=== PATIENT | female | born 1955 | race Caucasian/White ===

== ENCOUNTER → 2017-07-19 10:29 | Outpatient (CLI) | payer BC, SELFPAY ==
--- NOTE | 2017-07-19 10:31 | US_ITS ---
STUDY: ULTRASOUND BREAST - LEFT REASON FOR EXAM: Female, 61 years old. Abnormal screening mammogram. TECHNIQUE: Axial and longitudinal images of the LEFT breast were performed with a high resolution ultrasound transducer. COMPARISON: Comparison is made with prior study dated July 14, 2017. FINDINGS: LEFT Breast: There is a 6 mm x 6 mm x 3 mm mildly echogenic nodule at the 12:00 position the breast at 3 cm from the nipple. This most likely recurrence a lipoma. There is a 2 mm x 7 mm x 3 mm cyst at the 3:00 position approximately 3 cm from the nipple. There is also evidence of a 6 mm x 8 mm x 2 mm lymph node at the 3:00 position in the breast at 3 cm from the nipple US/Breast Limited Unilateral IMPRESSION: Small cyst at the 3:00 additional breast 3 cm from nipple as well as a small lymph node. ASSESSMENT CATEGORY: BIRADS Category 2: Benign. A letter regarding these results will be sent to the patient by the facility within 30 days. Electronically Signed: Neo Staples MD at 14:26 EDT Tel [phone], Service support ,
== END | disposition home or self-care (01) ==
PROVIDERS: Family Provider Family Medicine; PCP Family Medicine; Visit Provider Family Medicine
DX: N60.02 Solitary cyst of left breast (principal)
CPT/HCPCS: 76642

== ENCOUNTER → 2019-05-01 15:10 | Outpatient (CLI) | payer MEDICARE, SELFPAY ==
--- NOTE | 2019-05-01 15:18 | RAD_ITS ---
STUDY: X-RAY - PELVIS AND LEFT HIP REASON FOR EXAM: Female, 63 years old. Pain TECHNIQUE: 3 views of the pelvis and hip. COMPARISON: None. FINDINGS: There is a non-specific bowel gas pattern. Normal visualized soft tissue structures. Normal bilateral iliac wings, sacroiliac joints and visualized sacrum. Normal bilateral superior and inferior pubic rami. Normal pubic symphysis. Normal bilateral ischial tuberosities. Normal visualized femoral head. Sclerosis and probable degenerative cystic changes at the acetabulum. Narrowed hip joint. RAD/HIP, UNI W/ Pelvis 2-3 Views IMPRESSION: Degenerative changes with narrowing of the left hip. Electronically Signed: Aniceto Felder DO at 23:54 EDT Tel [phone], Service support ,
== END ==
PROVIDERS: Family Provider Family Medicine; PCP Family Medicine; Referring Provider Family Medicine; Visit Provider Family Medicine
DX: M25.552 Pain in left hip (principal)
CPT/HCPCS: 73502

== ENCOUNTER 2019-08-09 06:35 | Inpatient (IN) | payer MEDICARE, OTHER, SELFPAY ==
[2019-07-26 13:01] VITALS: BP 152/82; PULSE 69; RESP 17; TEMP 36.4; O2SAT 99; BMI 30.5
--- NOTE | 2019-07-26 13:25 | SDCEKG_ITS ---
Test Reason : Blood Pressure : / mmHG Vent. Rate : 065 BPM Atrial Rate : 065 BPM P-R Int : 158 ms QRS Dur : 074 ms QT Int : 394 ms P-R-T Axes : 067 039 062 degrees QTc Int : 409 ms Normal sinus rhythm Possible Left atrial enlargement Borderline ECG Confirmed by HALEY SHEPHERD, CHRIS ([id number]), offline editor JUDITH AYON ([id number]) on 07/28/2019 1:13:51 PM Referred By: Pete Roger Confirmed By:MICHELLE DE LEON MD
[2019-07-26 14:06] LABS: Absolute Lymphocyte Count 2.11 X10^3/uL (0.83-4.51); Absolute Neutrophil Count 3.6 X10^3/uL (2.0-7.7); Basophil# 0.03 X10^3/uL; Basophil% 0.5 % (0-1); Eosinophil# 0.11 X10^3/uL; Eosinophils% 1.7 % (0-5); Hematocrit 41.7 % (37-47); Hemoglobin 13.5 g/dL (12.0-15.0); Lymphocyte # 2.11 X10^3/ul (4.0); Lymphocyte % 33.2 % (19-41); Mean Corp Hgb Conc 32.4 g/dL (32-36); Mean Corpuscular Hgb 29.5 pg (27.0-32.0); Mean Platelet Vol. 9.9 fl (6.2-12.0); Monocyte% 7.9 % (0-10); NRBC Flagged by Analyzer 0 % (0-5); Neutrophil # 3.59 X10^3/uL (2.7-7.7); Neutrophil % 56.5 % (47-70); Platelet Count 243 K/mm3 (150-450); RBC Distribution Width CV 13.9 % (11.6-14.6); Red Blood Count 4.58 M/mm3 (4.2-5.4); White Blood Count 6.4 K/mm3 (4.4-11.0)
[2019-07-26 14:10] LABS: Partial Thromboplast Time 27.1 Seconds (24.1-36.2)
[2019-07-26 14:32] LABS: AST(SGOT) 26 U/L (15-37); Alanine Aminotransfer ALT/SGPT 40 U/L (13-56); Alkaline Phosphatase 76 U/L (45-117); Anion Gap 4 (5-15); BUN 10 mg/dL (7-18); BUN/Creat Ratio 13.5 RATIO (10-20); Calcium,Total 9.4 mg/dL (8.5-10.1); Chloride 108 mmol/L (98-107); Creatinine, Serum 0.74 mg/dL (0.55-1.02); EST Glomerular Filtration Rate 83 mL/min (>60); Est Glom Filt Rate - Afr Amer 101 mL/min (>60); Estimated Creatinine Clearance 70.95 ml/min; Globulin 3.9 g/dL (2.2-4.2); Glucose 95 mg/dL (74-106); Potassium 3.6 mmol/L (3.5-5.1); Protein, Total 7.9 g/dL (6.4-8.2); Sodium Level 140 mmol/L (136-145)
--- NOTE | 2019-07-27 10:29 | PCM.HP.BLA ---
History and Physical Patient Name: Eliana Calvin : 1955 From: MALINA MAE PA-C DATE OF SURGERY: 08/09/2019 SCHEDULED PROCEDURE: left total hip arthroplasty HISTORY OF PRESENT ILLNESS: Preoperative history and physical exam was performed on July 26, 2019. This is a 63-year-old female who has been having ongoing pain in her left hip for the past 1 year. Her pain is been intermittent, aching. She has increased pain going up and down stairs, driving, sitting, and walking. Patient states she has difficult time with activities of daily living including getting dressed due to the pain. Patient does have a history of a previous left hip fracture approximately 18 years ago that did require cephalo-medullary nail in which it was removed 1 year later. Patient states her pain can reach as high as a 9/10 with activities. The past several months the pain has been progressively getting worse. She does have start up pain. She does complain of pain in the left groin. Patient has tried oral medications consisting of ibuprofen and Excedrin with minimal relief. She has tried home exercises on her own with minimal relief. Patient denies recent fevers, chills, recent infections. Patient has medical history pertinent for hypertension. She also states she has a family history for aneurysms. She did have an MRA of the brain which revealed carotid stenosis. She is following with the specialist at [facility]. She denies any chest pain, shortness of breath, headaches, fevers, recent infections. Obtaining surgical clearance from patient's primary care physician Dr. Wright. After failing conservative measures and discussing treatment options with Dr. Pete Roger, the patient would like proceed with a left total hip arthroplasty. REVIEW OF SYSTEMS: ROS: Const: Reports change in appetite and weight change, but denies fever. CV: Denies chest pain, heart murmur and irregular heartbeat. Resp: Denies cough, pneumonia, shortness of breath, tuberculosis and wheezing. GI: Reports constipation, but denies diarrhea, heartburn, nausea, rectal itching, bloody stools and vomiting. : Denies incontinence. Musculo: Reports gait disturbance and trouble walking, but denies leg swelling, pain and weakness. Skin: Denies Raynaud's, history of shingles and tattoo. Neuro: Reports dizziness but denies ambulatory dysfunction, numbness/tingling and tremor. Psych: Reports stress, but denies anxiety and insomnia. Lc/Lymph: Reports past transfusion, but denies anemia and bleeding/bruising tendency. Reviewed, no changes. PAST MEDICAL HISTORY: Advance Care Plan: No Advance Directives Effective Date: 05/29/2019 PMH: Medical Problems: Arthritis, Hypercholesterolemia, High Blood Pressure Accidents: Fracture - (2000) LT HIP Surgical Hx: Eye Lid - (2017) LT Hip ORIF - (2000) LT Hip Hardware Removed - (2001) Anesthesia Complications: None Assistive Devices: Contacts, Glasses Reviewed and updated. SOCIAL HISTORY: SH: Marital: .Occupation: Realtor.Work Status: Currently Working.Hand Dominance: Right-handed. Personal Habits: Cigarette Use: Former.Smokeless Tobacco: Never Used Smokeless Tobacco.E-Cigarette Use: Never used.Alcohol: Occasionally.Drug Use: Denies Use.Enjoy Exercising: Exercises 1-3 X/Week. Reviewed, no changes. VITALS: Ht: 66 Wt: 198lb Wt k.813 BMI: 32.0 BP: 140/90 Pulse: 68 Resp: 16 T: 97.1 T: 36.2C ALLERGIES: Penicillin MEDICATIONS: Hydrochlorothiazide 25 mg 1 by mouth every day, Rosuvastatin Calcium 10 mg 1po qday, Aleve 220 mg prn, Excedrin Extra Strength 250-250-65 mg prn PRE-OP EXAM: General appearance:NORMAL Other: Eyes: Conjunctivae and lids: NORMAL Pupils: ERR Ears, Nose, Mouth, and Throat: NORMAL Other: Inspection of lips, teeth and gums: NORMAL Other: Neck: Examination of neck: no masses noted. Respiratory: Assessment of respiratory effort: NORMAL Other: Auscultation of lungs: clear to auscultation no wheezes, rhonchi or rales. Cardiovascular: Auscultation of heart: regular rate and rhythm, no murmurs, gallops or rubs. Gastrointestinal: Exam of abdomen: soft, nontender, nondistended bowel sounds present. PHYSICAL EXAMINATION: Patient walks with an antalgic gait. Patient has tenderness to palpation along the left lateral hip. Range of motion left hip: Flexion 85, internal rotation 20, external rotation 25. Pain is reproduced with flexion and internal rotation. Previous scars are without erythema or signs of infection. Sensation intact to light touch. IMAGING STUDIES: X-rays were obtained at [facility] including 2 views of the left hip AP pelvis and AP left hip reveals no acute finding for fracture or dislocation. There is evidence of previous cephalo-medullary nail with well-healed intertrochanteric hip fracture. Patient has had progressive osteoarthritis of the left hip with joint space narrowing, osteophyte formation, with subchondral cyst formation on the acetabulum. Left hip appears shorter in comparison to the lesser trochanter. IMPRESSION: 1. Severe left hip osteoarthritis 2. Hypertension 3. Hypercholesterolemia PLAN: Dr. Pete Roger did discuss and review with the patient all treatment options including surgical versus nonsurgical options. Patient does wish to proceed with the above-stated procedure. Potential risks, benefits, and complications of the procedure were discussed in detail including but not limited to , infection, nerve and blood vessel damage, persistent pain, numbness, tingling, paresthesias, blood clot, pulmonary embolism, and requirement for possible further surgery. The patient expressed full understanding and has no further questions for the doctor. Patient does agree to proceed with the above-stated procedure and has signed the surgery consent form. This dictation was created using voice recognition software. Phonetic and/or grammatical errors may exist. ___ I have re-examined the patient. There are no clinical changes since date of exam. ___ See progress notes for changes. ___ Dictated on admission Date: Time: Signature:
[2019-08-09] VITALS (14 sets, daily range): BP systolic 110–151; BP diastolic 57–96; PULSE 70–95; RESP 12–18; TEMP 36.1–36.8; O2SAT 96–100; BMI 30.5
--- NOTE | 2019-08-09 07:18 | RAD_ITS ---
STUDY: X-RAY - PELVIS AND LEFT HIP REASON FOR EXAM: Female, 63 years old. Left total hip replacement. TECHNIQUE: 3 views of the pelvis and hip. COMPARISON: None. FINDINGS: The patient is status post left hip replacement. There is good alignment. Postoperative soft tissue changes. RAD/Hip Min 2 Views (Portable) IMPRESSION: Status post left hip replacement. There is good alignment. Postoperative soft tissue changes. Electronically Signed: Neo Staples, at 13:55 EST , Service support ,
[2019-08-09 07:25] LABS: Bedside Glucose 82 mg/dL (70-110)
[2019-08-09] MEDS: Lactated Ringers 1,000 ML 125 ML IV ×3 (07:37→21:57)
[2019-08-09] MEDS: Magnesium Sulfate 4gm/100mL 4 GM/100 ML IV.SOLN. IV (07:38)
[2019-08-09] MEDS: Gabapentin 600 MG Tablet PO (07:39)
[2019-08-09] MEDS: Celecoxib 200 MG Capsule 400 MG PO (07:39)
[2019-08-09] MEDS: Acetaminophen 500 MG Tablet 1000 MG PO ×3 (07:39→21:56)
[2019-08-09] MEDS: Scopolamine 1mg/72hr Patch 1 PATCH TD (07:41)
[2019-08-09] MEDS: Lactated Ringers 1,000 ML 999 ML IV (08:22)
--- NOTE | 2019-08-09 08:45 | HIP_PTH ---
PATIENT: DASH LICEA LOC: MS3 U#:[id number] AGE/SX: 63/F [place]OM[place] [facility] [place]09/[address]: Dr. Pete Roger MD : 1955 BED: 1 DIS: 08/10/2019 SPEC #: [id number] RECD: 08/09/19 16:05 STATUS: BHARTI BRITTANY #: [id number] SOBEIDA: 08/09/19 08:[address]: Pete Roger DEPT: SURGICAL PATHOLOGY RECD BY: Dennis Toro ENTERED: 08/10/19 07:58 SP TYPE: TOTAL HIP OTHR DR: Dr. Uli Wright MD Tissues: Hip, NOS Procedures: Decalcification bone/plaque Surgery Specimen Level IV HEADER OPERATION: ERAS, total hip anterior approach PRE-OP DIAGNOSIS: Severe left hp osteoarthritis TISSUE SUBMITTED: Left hip bone MICROSCOPIC DIAGNOSIS Bone and soft tissue of left hip, total hip resection: Consistent with degenerative joint disease. Mild synovial hyperplasia. AM:leticia 08/16/19 MICROSCOPIC DESCRIPTION Slides are reviewed. GROSS DESCRIPTION Received is one container labeled with the patient's name and designated left hip. The specimen consists of a roberts femoral head measuring 4.5 x 4.5 x 4 cm. The articular surface displays prominent osteophyte formation and bone erosion. Also present in the specimen container is a detached piece of bone consistent with portion of femoral neck measuring 3.5 x 2.5 x 1 cm. The soft tissue measures in aggregate 8 x 8 x 2.5 cm. Avionics Integration Engineer sections are submitted in two cassettes as follows: 1 - soft tissue, 2 - bone after decalcification. / SJ:leticia 08/10/19 TC:5 CPT: 50559, 85542
[2019-08-09] MEDS: Cefazolin 2 GM in 0.9% Normal Saline 100 ML IV (09:15)
--- NOTE | 2019-08-09 09:55 | RAD_ITS ---
STUDY: X-RAY - PELVIS AND LEFT HIP REASON FOR EXAM: Female, 63 years old. Total anterior hip replacement. TECHNIQUE: 6 intraoperative views of the pelvis and hip. COMPARISON: Left hip, May 01, 2019. FINDINGS: The findings demonstrate placement of a left total knee arthroplasty. Please refer to the operative report for further details. RAD/Hip 1 view with Pelvis IMPRESSION: Left hip replacement in the OR. Electronically Signed: Kishor Mai DO at 17:46 EST Tel [phone], Service support ,
--- NOTE | 2019-08-09 10:45 | OP.PCM_ITS ---
Report of Operation Date of Procedure: 08/09/19 Pre-Operative Diagnosis: Left hip posttraumatic osteoarthritis Post-Operative Diagnosis: Left hip posttraumatic osteoarthritis Surgery/Procedure Performed:: Conversion of previous hip surgery to total hip replacement Description of Surgical Findings:: Stable hip with equal leg lengths. Patient had fracture callus near the proximal diaphysis where we had to ream in order to get the implants and properly. c consultant: Rosibel Valdez Type of Anesthesia:: Spinal Anesthesiologist: Minh Weiner Special Medications: 2 g Ancef, 1 g TXA at incision, 1 g TXA closure, 10 mg Decadron, joint cocktail (5 mg Duramorph, 30 mL of 0.5% Ropivicaine, 1000 units of epinephrine, 30 mg of Toradol) Specimen's removed: Femoral head Estimated Blood Loss (mL): 200 Fluids Replaced: 1000 mL crystalloid Description of Procedure: Components used: 1. Accolade 2 Migue femoral stem size 4 132? 2. Eureka trident 2 acetabular shell size 52 mm 3. Eureka X3 polyethylene E 4. Migue Biolox delta 36mm, -5mm femoral head Brief history operative indications: 63 yo f who failed conservative measures for their hip osteoarthritis which was resulted previous left hip fracture which was fixed surgically. Implants were eventually removed.. X-rays were consistent with osteoarthritis including joint space narrowing, osteophyte formation and subchondral cysts. Patient also had fracture callus and healing in the subtrochanteric area with good alignment of the proximal femur. Total hip replacement was discussed with the patient with risks and benefits including but not limited to blood loss, DVTs, PEs, brock rovascular damage, dislocation, general risks of anesthesia including loss of life. Patient demonstrated an understanding medical clearance is obtained the patient was consented for surgery. Procedure: On the date of procedure the patient's L hip was marked in the preoperative area. Patient was then taken back to the operating room where anesthesia assumed control of the C-spine and airway and administered anesthetic. Patient was transferred to the operating table and placed in the supine position. The hips were placed at the break of the bed and a sacral bump was placed. The L lower extremity was then prepped out in a sterile fashion using chlorhexidine while the surgeon scrubbed. The PA was vital in the positioning of the patient. Upon reentering the room the L lower extremity was draped in the standard orthopedic fashion and the incision was marked. A timeout was called and everyone agreed upon the side, the site, the procedure be performed, antibody given, and patient's identity. At this time incision was made through skin, subcutaneous tissue, and fat down to fascia. The fascia was then incised and the TFL was retracted laterally. A retractor was placed on the lateral border of the femoral neck. Attention was directed to the inferior portion of the approach and all crossing vessels were identified and appropriately coagulated. A retractor was then placed on the medial portion of the femoral neck. The anterior capsule was then cleared of all soft tissue and then H shaped capsulotomy was made. The retractors were then placed inside the capsule. The femoral neck was identified and a cleanup cut was made. At this time a power corkscrew was used to remove the femoral head. Attention was then turned toward the acetabulum where the soft tissues were ap propriately retracted and the acetabulum was sequentially reamed to 52 mm. A 52 mm cup was then selected and impacted into place. Acetabular liner was impacted into place and locking mechanism was verified. The position of the acetabular cup was then verified under live fluoroscopy. Attention was then turned to the femur. Soft tissue releases on the medial and lateral femoral neck were appropriately done, the leg was externally rotated and lateralized. A Stevens retractor was placed medially and proximally to the greater trochanter this allowed appropriate visualization and exposure of the femoral canal. Rongeour was then used to remove excess lateral bone. A canal finder and entry broach were used to open the proximal canal. Initially the fracture callus in the sub-soheila area made it difficult to get the first broach pass. Live x-ray was used in the AP and lateral planes in order to carefully pass the first broach. After the first broach was passed live x-ray was used to verify that we had not perforated the cortex. At this time a ball-tipped guidewire was placed down the canal and flexible reamers were used to open up the canal for the planned size for stem. We also new from the initial x-rays that we needed to continue to lateralize her implant. Once we verified we were down the femoral canal we subsequently broached up to a size 4 femur. The appropriate neck was placed in the previously selected head was trialed with a - 5 mm neck. Traction was pulled and the hip was reduced with internal rotation. Once it was appropriately reduced and stability was checked. There was minimal shuck, equal leg lengths and appropriate stability with hyperextension and external rotation as well as with 90? flexion and internal rotation. Fluoroscopy was then also used to verify the position of the components and leg lengths using the contralateral side for comparison. We examined the hip in the AP and lateral planes as well as the proximal femur to verify no fractures occurred during surgery. No fractures were detected. The trial components were then dislocated the proximal femur was again exposed and the components were removed from the wound. The final components were verified and opened. The wound was copiously irrigated out with normal saline. The acetabulum was checked for any residual debris. The final components were placed and impacted. Traction and internal rotation were again used to reduce the hip. After adequate reduction the hip remained stable with appropriate leg lengths. The final components were once again checked with live fluoroscopy and were found to be satisfactory. The wound was then copiously irrigated with normal saline once more, and hemostasis was obtained. Closure was then done using #1 Vicryl runner to close the fascia. A 2-0 vicryl interuppted sutures were used to close the subcutaneous skin. A 3-0 Monocryl and Steri-Strips were used for final skin closure. A Silverlon dressing was placed. Patient was awakened by anesthesia and transferred to the [facility]. Patient was then transferred to the PACU for recovery. Postoperative plan: Patient will get 24 hours postop antibiotics. Patient will get in-house physical therapy and will be weight-bear as tolerated. Patient will follow up in office in 2 weeks for a wound check and x-rays. Grafts/Implants Used: Migue - Complications No intraoperative complications - Admit VTE Documentation VTE Present on Admission: No VTE Mechan Device Prophylaxis: SCD's, Thigh High GELY Hose VTE Pharm Prophylaxis ordered?: Yes
[2019-08-09] MEDS: dexAMETHasone 10 MG/ML Vial IV (12:17)
[2019-08-09] MEDS: hydroCHLOROthiazide 12.5mg 12.5 MG PO (13:58)
[2019-08-09] MEDS: Famotidine 20 MG Tablet PO (13:58)
[2019-08-09] MEDS: Ensure Surgery 237 ML LIQUID PO (14:04)
[2019-08-09] MEDS: Ondansetron 4 MG/2 ML Vial IV (15:32)
[2019-08-09] MEDS: 0.9% Saline Lock 10 ML Syringe IV ×2 (15:33→16:50)
[2019-08-09] MEDS: Aspirin 81 MG TAB.CHEW PO (16:49)
[2019-08-09] MEDS: Cefazolin 1 GM/50 ML BAG IV (16:49)
[2019-08-09] MEDS: Ketorolac 15 MG/ML Vial IV (16:50)
[2019-08-09] MEDS: traMADol 50 MG Tablet PO (18:04)
[2019-08-09] MEDS: Morphine 2 MG/ML Syringe IV (19:48)
[2019-08-09] MEDS: Atorvastatin Calcium 20 MG Tablet PO (21:56)
[2019-08-09] MEDS: Senna/Docusate Sodium 1 Tablet 2 TABLET PO (21:56)
[2019-08-10] MEDS: Cefazolin 1 GM/50 ML BAG IV (00:44)
[2019-08-10 04:27] VITALS: BP 127/57; PULSE 72; RESP 16; TEMP 36.5; O2SAT 93
[2019-08-10] MEDS: Ondansetron 4 MG/2 ML Vial IV (05:20)
[2019-08-10] MEDS: Acetaminophen 500 MG Tablet 1000 MG PO ×2 (05:48→14:02)
[2019-08-10 06:10] LABS: Hematocrit 32.4 % (37-47); Hemoglobin 10.8 g/dL (12.0-15.0); Mean Corp Hgb Conc 33.3 g/dL (32-36); Mean Platelet Vol. 9.4 fl (6.2-12.0); Platelet Count 215 K/mm3 (150-450); RBC Distribution Width CV 13.2 % (11.6-14.6); RBC Distribution Width SD 43.8 fl (35.1-43.9); White Blood Count 14.5 K/mm3 (4.4-11.0)
[2019-08-10 06:24] LABS: Anion Gap 6 (5-15); BUN 10 mg/dL (7-18); BUN/Creat Ratio 17.1 RATIO (10-20); Calcium,Total 8.4 mg/dL (8.5-10.1); Chloride 97 mmol/L (98-107); Creatinine, Serum 0.58 mg/dL (0.55-1.02); EST Glomerular Filtration Rate 110 mL/min (>60); Est Glom Filt Rate - Afr Amer 133 mL/min (>60); Estimated Creatinine Clearance 90.53 ml/min; Glucose 121 mg/dL (74-106); Potassium 3.5 mmol/L (3.5-5.1); Sodium Level 132 mmol/L (136-145)
--- NOTE | 2019-08-10 06:39 | NURSING ---
up to bathroom, unable to void, bladder scanned for 550, straight cath for 600cc clear yellow urine. Pt tolerated well.
[2019-08-10 07:59] VITALS: BP 110/56; PULSE 75; RESP 18; TEMP 36.4; O2SAT 93
[2019-08-10] MEDS: Senna/Docusate Sodium 1 Tablet 2 TABLET PO (08:09)
[2019-08-10] MEDS: Multivitamins,Ther W-Minerals Tablet 1 TABLET PO (08:09)
[2019-08-10] MEDS: Aspirin 81 MG TAB.CHEW PO (08:09)
[2019-08-10] MEDS: Famotidine 20 MG Tablet PO (08:09)
[2019-08-10] MEDS: Ensure Surgery 237 ML LIQUID PO ×2 (08:09→11:36)
[2019-08-10] MEDS: hydroCHLOROthiazide 12.5mg 12.5 MG PO (08:09)
--- NOTE | 2019-08-10 09:12 | PCM.PN.ORT ---
Subjective: The patient was sitting in bed upon examination. Patient denies any chest pain, shortness of breath, nausea or vomiting, or calf pain. Pain is controlled on medications. Patient did have overnight some nausea and dizziness/lightheadedness when trying to get up. He did require Zofran. She also required to be straight cathed but was also able to urinate on her own. She does report having some experience with getting to the bathroom fast enough in the past. She has not seen any urologist or primary care physician for this problem. Nursing states she was able to urinate on her own but did require straight cath. Objective: Vital signs stable and afebrile. Patient is able to plantarflex and dorsiflex actively. Sensation is intact to light touch to saphenous, sural, superficial and deep peroneal, and tibial distribution. Dressing is mild drainage over the lateral portion of the dressing but otherwise clean dry and intact Negative Homans bilaterally, negative signs and symptoms of DVT. - Physical Exam Vitals/I&O's: Vital Signs Temp Pulse Resp BP Pulse Ox 97.6 F L 75 18 110/56 L 93 08/10/19 07:59 08/10/19 07:59 08/10/19 07:59 08/10/19 07:59 08/10/19 07:59 Oxygen Flow Rate (L/min) 6 Oxygen Delivery Method Room Air Weight: 85.91 kg Body Mass Index (BMI) 30.5 Intake and Output for Last 24 Hours 08/08/19 08/09/19 08/10/19 23:59 23:59 23:59 Intake Total 2619.58 / 3419.58 2929.17 / 2929.17 Output Total 1130 / 1130 600 / 600 Balance 1489.58 / 2289.58 2329.17 / 2329.17 General: Alert, Oriented x3, Cooperative, No apparent distress Laboratory Results 08/10/19 05:55: WBC 14.5 H, RBC 3.60 L, Hgb 10.8 L, Hct 32.4 L, MCV 90.0, MCH 30.0, MCHC 33.3, RDW Std Deviation 43.8, RDW Coeff of Tiffany 13.2, Plt Count 215, MPV 9.4 08/10/19 05:55: Sodium 132 L, Potassium 3.5, Chloride 97 L, Carbon Dioxide 29.0, Anion Gap 6, BUN 10, Creatinine 0.58, Estim Creat Clear Calc 90.53, Est GFR (MDRD) Af Amer 133, Est GFR (MDRD) Non-Af 110, BUN/Creatinine Ratio 17.1, Glucose 121 H, Calcium 8.4 L Current Medications Acetaminophen (Tylenol) 1,000 mg PO Q8 [facility] Last Admin: 08/10/19 05:48 Dose: 1,000 mg Documented by: Aspirin (Aspirin, Baby) 81 mg PO BIDCM [facility] Last Admin: 08/10/19 08:09 Dose: 81 mg Documented by: Atorvastatin Calcium (Lipitor) 20 mg PO QHS [facility] Last Admin: 08/09/19 21:56 Dose: 20 mg Documented by: Enteral Nutritional Formula (Ensure Surgery) 237 ml PO TIDCM [facility] Last Admin: 08/10/19 08:09 Dose: 237 ml Documented by: Famotidine (Pepcid) 20 mg PO DAILY [facility] Last Admin: 08/10/19 08:09 Dose: 20 mg Documented by: Hydrochlorothiazide () 12.5 mg PO DAILY [facility] Last Admin: 08/10/19 08:09 Dose: 12.5 mg Documented by: Sodium Chloride () 250 mls @ 15 mls/hr IV .[id number] PRN PRN Reason: Saline Flush Ketorolac Tromethamine (Toradol) 15 mg IV Q6H PRN PRN PRN Reason: Pain Score 1-5/10 Stop: 08/11/19 07:18 Last Admin: 08/09/19 16:50 Dose: 15 mg Documented by: Meloxicam (Mobic) 7.5 mg PO BID [facility] Morphine Sulfate () 2 - 4 mg IV Q2H PRN PRN PRN Reason: Pain Score 4-10/10 Last Admin: 08/09/19 19:48 Dose: 2 mg Documented by: Morphine Sulfate () 2 - 4 mg IV Q2H PRN PRN PRN Reason: Pain Score 4-10/10 Multivitamins/Minerals (Multivitamin With Minerals) 1 tablet PO DAILY@0800 [facility] Last Admin: 08/10/19 08:09 Dose: 1 tablet Documented by: Ondansetron HCl (Zofran) 4 mg IV Q8H PRN PRN PRN Reason: NAUSEA Last Admin: 08/10/19 05:20 Dose: 4 mg Documented by: Promethazine HCl (Phenergan) 12.5 mg IM Q6H PRN PRN; Protocol PRN Reason: NAUSEA/VOMITING Senna/Docusate Sodium (Senokot-S, Anjali-Colace) 2 tablet PO BID [facility] Last Admin: 08/10/19 08:09 Dose: 2 tablet Documented by: Sodium Chloride () 10 - 40 ml IV UD PRN PRN Reason: SALINE FLUSH Last Admin: 08/09/19 16:50 Dose: 10 ml Documented by: Tramadol HCl (Ultram) 50 - 100 mg PO Q6H PRN PRN PRN Reason: Pain Score 4-10/10 Last Admin: 08/09/19 18:04 Dose: 100 mg Documented by: Medical Necessity - Tobacco Use Smoking Status: Former smoker Tobacco Use: Cigarettes Assessment/Plan 1. S/P left direct anterior total hip arthroplasty POD #1 2. Continue Pain Medications: Tylenol and tramadol 3. DVT Prophylaxis: Aspirin 81 mg twice daily for 4 weeks postoperatively 4. PT/OT: Weightbearing as tolerated 5. H & H: 10.8/32.4, asymptomatic 6. Reactive leukocytosis: Currently 14.5, afebrile. Patient did receive Decadron intraoperatively 7. Encouraged Incentive Spirometry 8. Urinary retention 9. Disposition: Orthopedically patient is doing well and pain appears to be controlled. She did have some urinary retention overnight. She was able to urinate on her own but did require a straight cath as well. At this point I would like to see how she does throughout the day. If patient tolerates physical therapy and she is able to urinate on her own we will plan for her to go home possibly this afternoon/evening. If she does continue to have any urinary type symptoms I did recommend that she follow-up with her primary care physician in the future. I will have medications attached to chart for possible discharge. If patient continues to have urinary retention will consider consult with the primary medicine. Patient does have outpatient physical therapy established. She will follow-up per postop instructions.
--- NOTE | 2019-08-10 09:33 | DCINST_ITS ---
Discharge Diet: No Restrictions Discharge Activity: May Not Drive - while taking narcotic pain medications. May shower in (days): 1 - Dressing away from water. Must be intact to skin Ice area for (Minutes): 20 - Every 1-2 hours while awake Weight Bearing Status: Weight bearing as tolerated Elevate: Operative Extremity Additional Activity Instructions:: Wear elastic stockings for 2 weeks. DO NOT use alcohol with narcotic pain medication. DO NOT make important decisions while taking narcotic medication. If you have problems with taking your medication (rash, itching, nausea, etc.) call the office at once. Call your doctor if your incision/area has: Increased Pain/ Swelling, Increased Redness, Foul Smelling Discharge Call your doctor if you observe: Fever of 101 or Higher Remove Dressing in (days):: 4 - Okay to remove dressing on August 14, 2019 Additional Instructions: Follow orthopedic postop instructions Allergies/Adverse Reactions: Allergies Penicillins [PCN] Allergy (Verified 08/09/19 07:13) Hives Medications to take at Discharge Hydrochlorothiazide [Hctz] 12.5 mg PO DAILY 07/26/19 Multivit-Min/Iron/Folic/Lutein [Centrum Silver Women Tablet] 1 ea PO DAILY 07/26/19 Rosuvastatin Calcium [Crestor] 10 mg PO DAILY 07/26/19 Acetaminophen [Tylenol] 1,000 mg PO Q8 #100 tab 08/10/19 Aspirin [Aspirin, Baby] 81 mg PO BIDCM #60 tab.chew 08/10/19 Famotidine [Pepcid] 20 mg PO DAILY #30 tab 08/10/19 Meloxicam [Mobic] 7.5 mg PO BID #60 tab 08/10/19 Ondansetron HCl [Zofran] 4 mg PO Q8H PRN PRN #20 tab 08/10/19 Senna/Docusate Sodium [Senokot-S] 2 tab PO BID #10 tab 08/10/19 traMADol [Ultram] 50 - 100 mg PO Q6H PRN PRN 5 Days #40 tab 08/10/19 The following prescriptions were given: Aspirin [Aspirin, Baby] 81 mg PO BIDCM #60 tab.chew Prescription Printed Meloxicam [Mobic] 7.5 mg PO BID #60 tab Prescription Printed Famotidine [Pepcid] 20 mg PO DAILY #30 tab Prescription Printed Senna/Docusate Sodium [Senokot-S] 2 tab PO BID #10 tab Prescription Printed Acetaminophen [Tylenol] 1,000 mg PO Q8 #100 tab Prescription Printed traMADol [Ultram] 50 - 100 mg PO Q6H PRN PRN 5 Days #40 tab PRN Reason: Pain Score 4-10/10 Prescription Printed Ondansetron HCl [Zofran] 4 mg PO Q8H PRN PRN #20 tab PRN Reason: Nausea/Vomiting Prescription Printed Primary Care Physician: Uli Wright MD [Primary Care Provider] - Test Results: Test results from this visit will be discussed in further detail at your follow- up appointment, if applicable. Please Follow Up With: [facility] When: 08/14/19 @ 11:00 am Please Follow Up With: Isaias Ragland PA-C When: 08/23/19 @ 11:00 am
--- NOTE | 2019-08-10 10:50 | CASEMGMT ---
KELLEY ARAIZA Face to Face with patient for initial transition planning/care coordination assessment. RN JOSE G introduced self and role at [facility]. Patient sitting in chair, alert and oriented. Patient willing to participate in assessment and is able to answer all questions appropriately. Care providers, pharmacy, and demographics verified. Patient wishes to discharge home and is setup with [facility] for outpatient therapy. Patient states she has no further needs or concerns at this time. CM to follow for discharge planning needs that may arise. PCP: Kyle Specialists: Terry Roger Pharmacy: [facility] Insurance: [employer] Prescription Benefit: yes Living Will/HPOA: yes, John Calvin HPOA [place]NOK: Living Arrangements: Patient lives with in 2 story home with option for bed and bath on first floor. Patient was independent at home prior to surgery. Transportation: DME/HHC: Patient states she has shower chair, raised toilet seat, hand held shower, walker. Patient is scheduled for outpatient therapy at [facility] for Wednesday. Disposition Plan: Patient to discharge home with outpatient therapy, family support, and follow-up plans in place. Gris MORRISON, RN, CM
--- NOTE | 2019-08-10 13:36 | CASEMGMT ---
Pt had told preadmission RN she does not have LW/POA and declined any information as well. PERLA Nath
--- NOTE | 2019-08-10 13:59 | CASEMGMT ---
Social Work Note MELBA received message from Tatiana with [employer] asking about discharge plans for pt and stating pt does have home health therapy benefit. MELBA placed a call back to Tatiana ([phone]) and left her a message that pt will be going home with outpatient therapy either today or tomorrow. Gris Blas NATUROPATHIC DOCTOR, [employer]
[2019-08-10 14:03] VITALS: BP 123/50; PULSE 72; RESP 16; TEMP 36.5; O2SAT 94
== END 2019-08-10 17:20 | disposition home or self-care (01) | DRG 470 ==
LOC: ACINP 06:36 → MS3 11:17
PROVIDERS: Anesthesiology; Admitting Provider Specialist; Family Provider Family Medicine; PCP Family Medicine; Referring Provider Specialist; Visit Provider Specialist
PROC: 0SRB04A Replacement of Left Hip Joint with Ceramic on Polyethylene Synthetic Substitute, Uncemented, Open Approach (ICD-10-PCS; CPT 27284; principal; 2019-08-09 08:20)
DX: M16.52 Unilateral post-traumatic osteoarthritis, left hip (principal); S72.142S Displaced intertrochanteric fracture of left femur, sequela; R33.9 Retention of urine, unspecified; E78.00 Pure hypercholesterolemia, unspecified; I10 Essential (primary) hypertension; Z87.891 Personal history of nicotine dependence
CPT/HCPCS: 36415; 73501; 73502; 76000; 80048; 80076; 82962; 85025; 85027; 85610; 85730; 87077; 87081; 88305; 88311; 93005; 97110; 97162; 97166; 97530; 99251; C1776; J7120; A4216; G0463; J2405